=== PATIENT | male | born 1970 | race Caucasian/White ===

== ENCOUNTER 2019-09-09 11:33 | Emergency (ER) | payer OTHER, SELFPAY ==
[2019-09-09 12:40] VITALS: BP 115/70; PULSE 63; RESP 16; TEMP 36.6; O2SAT 98; BMI 23.4
--- NOTE | 2019-09-09 13:00 | ED_ITS ---
Entered by Saturnino Mohan, acting as scribe for Dominguez Grijalva DO Sep 09, 2019 11:33 HPI - Skin/Abscess/Foreign Bdy General: Chief complaint: Skin/Abscess/Foreign Body Stated complaint: ABCESS Time Seen by Provider: 09/09/19 13:00 History of Present Illness: HPI narrative: 49 yo male presents with abcess. pt states that he has had this abcess on his rectal area for about 3 days. Pt states that it is painful. No significant drainage denies fever sweats chills MD complaint: abscess/boil Associated symptoms: Deny chills, fever(s), nausea or vomiting Review of Systems Const: Denies: fever, chills, body aches, fatigue, malaise or night sweats Eyes: Denies: change in vision or blurry vision ENMT: Denies: throat pain, oral sores/lesions, dental pain, nasal discharge or nasal congestion Card: Denies: chest pain, palpitations, irregular heart rhythm, edema, syncope, shortness of breath on exertion, shortness of breath when lying down or leg pain with exertion Resp: Denies: shortness of breath, productive cough, non-productive cough or wheezing GI: Denies: abdominal pain, nausea, vomiting, vomiting blood, coffee grounds in vomit, difficulty swallowing, heartburn/indigestion, diarrhea, constipation, cramping, blood in stool or black tarry stool : Denies: flank pain, difficulty urinating, painful urination, urinary fr equency, urinary urgency, urinary incontinence or blood in urine Musc: Denies: neck pain, back pain, extremity pain, extremity swelling, joint pain or joint swelling Skin/Breast: Reports: redness and new lesion; Denies: rash or itching Neuro: Denies: headache, numbness in extremities, weakness in extremities, changes in sensation, lack of coordination, difficulty walking, frequent falls, dizziness, vertigo or confusion Psych: Denies: anxiety, depression, loss of interest, visual hallucinations, auditory hallucinations, suicidal ideation or homicidal ideation Endo: Denies: excessive urination, excessive thirst, tired all the time or cold intolerance Jeff/Lymph: Denies: easy bruising, easy bleeding, petechiae, enlarged lymph nodes or tender lymph nodes PFSH ED PFSH: Social History Smoking and tobacco status: current every day smoker Physical Exam Const: COMMON NORMALS: average body habitus, oriented x3 and alert GENERAL APPEARANCE: cooperative, comfortable, well kempt and well developed NUTRITIONAL APPEARANCE: obese ORIENTATION/CONSCIOUSNESS: Yes awake, Yes oriented to person and Yes oriented to place HENMT: COMMON NORMALS: normocephalic, head/scalp atraumatic, EAC's normal, TM's normal bilaterally, external nose normal, moist oral mucous membranes and oropharynx normal HEAD & SCALP: normocephalic and atraumatic NOSE: external nose normal EXTERNAL AUDITORY CANAL: EAC's normal TYMPANIC MEMBRANE: TM's normal bilaterally MOUTH: oral and palatal mucosa normal, lip normal and tongue normal THROAT: posterior oropharynx normal and tonsils normal Eye: COMMON NORMALS: PERRL, EOMs intact bilaterally, conjunctivae normal and no scleral icterus CONJUNCTIVA: Yes conjunctivae normal PUPIL: Yes PERRL Neck/C-Spine: COMMON NORMALS: full ROM, no lymphadenopathy, supple, no meningeal signs and thyroid normal THYROID: thyroid normal and asymmetrical Lymph: LYMPHATIC: no lymphadenopathy noted Resp: COMMON NORMALS: normal respiratory effort, no retractions, no use of accessory muscles and clear to auscultation bilaterally AUSCULTATION: clear to auscultation bilaterally Cardio: COMMON NORMALS: regular rate and regular rhythm RATE: regular rate RHYTHM: regular rhythm HEART SOUNDS: no murmurs GI: COMMON NORMALS: normal to inspection, nondistended, normoactive bowel jeremias nds, soft to palpation and no hepatosplenomegaly PALPATION: Yes soft and Yes no hepatosplenomegaly : COMMON NORMALS: Yes no CVA tenderness BLADDER/KIDNEY EXAM: Yes no CVA tenderness Back/Pelvis: COMMON NORMALS: no CVA tenderness LUMBAR SPINE/LOWER BACK: Yes normal to inspection Extremity: COMMON NORMALS: no clubbing, cyanosis or edema, no calf tenderness and no pedal edema Neuro: COMMON NORMALS: oriented x3 SENSORIUM/ORIENTATION: Yes alert, Yes oriented to person and Yes oriented to place MENINGEAL SIGNS: Yes no meningeal signs Psych: APPEARANCE: Yes well kempt Procedures Abscess I/D Site: jaclyn-rectal Side (if applicable): left Local Anesthetic: lidocaine 1% and with epi Amount of anesthesia used (mL): 3 Technique: incised with #11 blade Amount of fluid expressed (mL): 10 Irrigation: Yes Packing used?: iodoform Complications: pain Course ED course: Incision and drainage good relief of discomfort wound cavity are actually relatively small pockets a small amount of quarter inch iodoform gauze. Start him on Augmentin gave him hydrocodone for pain follow-up tomorrow for replacement wound packing and referral to surgery for definitive resection of the perirectal abscess at a later date. Vital Signs: Vital signs: Vital Signs Temperature 98 F 09/09/19 12:40 Pulse Rate 63 09/09/19 13:51 Respiratory Rate 18 09/09/19 13:51 Blood Pressure 115/70 09/09/19 12:40 Pulse Oximetry 96 09/09/19 13:51 MDM - Skin/Abscess/Foreign Bdy Lab Data: Labs: Lab Results 09/09/19 09/09/19 Range/Units 13:16 13:16 WBC 12.4 H (4.0-10.0) 10^3/ uL RBC 4.38 (4.1-5.3) 10^6/u L Hgb 13.6 (11.7-16.6) g/dL Hct 40.8 L (42.0-52.0) % MCV 93.2 (80-94) fL MCH 31.1 (28.0-34.0) pg MCHC 33.3 (30.0-36.0) g/dL RDW 14.2 (12.1-15.1) % Plt Count 263 (130-400) 10^3/c mm MPV 9.2 (7.4-10.4) fL Neut % (Auto) 77.1 % Lymph % (Auto) 15.1 % Taliaferro % (Auto) 6.1 % Eos % (Auto) 1.3 % Baso % (Auto) 0.2 % Neut # (Auto) 9.6 H (1.8-7.7) 10^3/u L Lymph # (Auto) 1.9 (0.8-4.8) 10^3/u L Taliaferro # (Auto) 0.8 (0.2-0.9) 10^3/u L Eos # (Auto) 0.2 (0.0-0.8) 10^3/u L Baso # (Auto) 0.0 (0.0-0.1) 10^3/u L Nucleated RBC % (a uto) 0 % Nucleated RBCs # 0.0 /100WBC Sodium 140 (136-145) mmol/L Potassium 4.1 (3.5-5.1) mmol/L Chloride 104 (98-107) mmol/L Carbon Dioxide 26 (22-29) mmol/L Anion Gap 14.1 (5-19) BUN 7 (6-20) mg/dL Creatinine 0.8 (0.7-1.2) mg/dL GFR Calculation 102.7 (90-130) mL/min Glucose 106 (65-115) mg/dL Calculated Osmolal ity 286 (285-295) mOsm/k g Calcium 9.6 (8.5-10.5) mg/dL Discharge Plan Discharge Patient Disposition: Home, Self-Care Clinical Impression: Jaclyn-rectal abscess Condition: Stable Prescriptions: [place] 5-325 mg tablet 1 tab PO Q6H PRN (Reason: pain) Qty: 25 RF: 0 Augmentin 875-125 mg tablet 1 tab PO Q12H Qty: 20 RF: 0 Discharge Orders: Discharge Order (Routine); Ordered 09/09/19 Ordered By: Dominguez Grijalva Referrals: Srinivasan Grimes MD [Physician] - (Surgical excision of perirectal abscess at later date) Activity Restrictions/Additional Instructions: Follow-up at your doctor's office or 1 of the walk-in clinics for replacement of packing in perirectal abscess tomorrow. Case management will call to arrange for follow-up appointment with surgery. Discharge Date/Time: 09/09/19 14:01 Coding Level of Care Code ED Infectious Diseases Physician for Chg Fwd Exam Comprehensive The documentation recorded by the Marques calvert Kialy, accurately reflects the service I personally performed and the decisions made by Rudi handley Curtis L, DO Sep 09, 2019 11:33
[2019-09-09 13:21] LABS: Basophils % 0.2 %; Eosinophils # 0.2 10^3/uL (0.0-0.8); Eosinophils % 1.3 %; Hematocrit 40.8 % (42.0-52.0); Hemoglobin 13.6 g/dL (11.7-16.6); Lymphocytes # 1.9 10^3/uL (0.8-4.8); Lymphocytes % 15.1 %; Mean Corpuscular HGB Conc 33.3 g/dL (30.0-36.0); Mean Corpuscular Hemoglobin 31.1 pg (28.0-34.0); Mean Corpuscular Volume 93.2 fL (80-94); Mean Platelet Volume 9.2 fL (7.4-10.4); Monocytes # 0.8 10^3/uL (0.2-0.9); Monocytes % 6.1 %; Neutrophils # 9.6 10^3/uL (1.8-7.7); Neutrophils % 77.1 %; Nucleated Red Blood Cells % 0 %; Platelet Count 263 10^3/cmm (130-400); Red Blood Count 4.38 10^6/uL (4.1-5.3); Red Cell Distribution Width 14.2 % (12.1-15.1); White Blood Count 12.4 10^3/uL (4.0-10.0)
[2019-09-09 13:36] LABS: Anion Gap 14.1 (5-19); Blood Urea Nitrogen 7 mg/dL (6-20); Calcium 9.6 mg/dL (8.5-10.5); Carbon Dioxide 26 mmol/L (22-29); Chloride 104 mmol/L (98-107); Glomerular Filtration Rate 102.7 mL/min (90-130); Glucose 106 mg/dL (65-115); Osmolality Calculated 286 mOsm/kg (285-295); Potassium 4.1 mmol/L (3.5-5.1); Sodium 140 mmol/L (136-145)
[2019-09-09] MEDS: ondansetron 2 mg/ML SDV 2 mL 4 MG IM (13:44)
[2019-09-09 13:45] VITALS: RESP 18
[2019-09-09] MEDS: morphine 4 mg/mL SDV 1 mL IM (13:45)
[2019-09-09 13:51] VITALS: PULSE 63; RESP 18; O2SAT 96
--- NOTE | 2019-09-10 11:37 | DCPLANNER ---
Addendum entered by Aura Sanchez 09/14/19 11:34: Patient was seen on 09.14.19 at [facility], and patient did attend the appointment. Original Note: sheet manager had message to schedule a follow up appointment for patient with Dr. Girmes. sheet manager called the office of Dr. Grimes, and gave patients name. sheet manager will call for appointment information. Patient has [facility] insurance, will call October with the VA to let the VA know that patient was seen in the ER.
== END 2019-09-09 14:01 | disposition home or self-care (01) ==
PROVIDERS: Emergency Provider Family Medicine
DX: K61.1 Rectal abscess (principal); F17.200 Nicotine dependence, unspecified, uncomplicated; E66.9 Obesity, unspecified; Z68.23 Body mass index [BMI] 23.0-23.9, adult
CPT/HCPCS: 36415; 46050; 80048; 85025; 87070; 87077; 87205; 96372; 99282; 99283; J2270; J2405

== ENCOUNTER → 2023-07-24 14:15 | Outpatient (BNVA) | payer OTHER, SELFPAY | PROVIDERS: PCP Emergency Medicine Emergency Medical Services; Visit Provider Dermatology | DX: L72.8 Other follicular cysts of the skin and subcutaneous tissue (principal); L57.0 Actinic keratosis; L82.0 Inflamed seborrheic keratosis; L30.0 Nummular dermatitis; L82.1 Other seborrheic keratosis; D22.5 Melanocytic nevi of trunk; Z85.828 Personal history of other malignant neoplasm of skin; Z85.820 Personal history of malignant melanoma of skin | CPT/HCPCS: 17000; 17110; 99204 ==

== ENCOUNTER 2024-04-24 10:13 | Outpatient (CLI) | payer OTHER, SELFPAY ==
[2024-04-24 10:36] VITALS: BMI 24.3
--- NOTE | 2024-04-24 10:36 | ECG_ITS ---
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 Interpretive Statements Exercise sestamibi stress test EXERCISE DATA: The patient was exercised by Ton protocol. Baseline heart rate was 66 beats per minute. Baseline blood pressure was 127/83millimeters of mercury. Maximal predicted heart rate was 166 beats per minute. Maximum heart rate achieved was 151, which was 90% of the maximum predicted heart rate. Maximum blood pressure was 189/73millimeters of mercury. Total exercise time was 5-minute 46 seconds. Maximum METs achieved was 7. The reason for ending the test was maximal effort achieved. The patient complained of shortness of breath during the stress test, which then resolved at the end of the test. ELECTROCARDIOGRAM: BASELINE: Showed sinus rhythm, normal axis, no significant ST-T changes at the baseline noted. [] EXERCISE: At the peak exercise level, [] No significant ST-T changes suggestive of ischemia noted. [] RECOVERY: During the recovery period, heart rate dropped appropriately. No significant ST-T changes in the recovery suggestive of ischemia noted. [] CONCLUSION: 1. Exercise capacity is good 2. Heart rate response was appropriate. 3. Blood pressure response was appropriate. 4. Symptoms not suggestive of ischemia. 5. Electrocardiogram portion of the stress test was not suggestive of ischemia. 6. Nuclear scan will be documented separately. Electronically Signed On 04-24-2024 19:40:35 CDT by Lavon Ngo M.D. [email or web address]
--- NOTE | 2024-04-24 10:41 | NMCV_ITS ---
NM jw perf SPECT r/s* 16000 Jamir Harry Age: 54 Gender: M : 1970 Exam Date: 04/24/2024 10:41 Ordering Phys: Meredith Gonzalez MD Technologist: JESUSITA Torres Exam Location: [facility] Indications: cp STRESS TEST [facility] IMAGE PROTOCOL Rest/Stress 1 Exercise Day Radiopharmaceutical Dose (mCi) Administration Site Administered by Rest: Tc-99m 10.7 IV Luisa Faye, METAL LEAF LAYER Sestamibi Stress:Tc-99m 31.9 IV Luisa Faye, METAL LEAF LAYER Sestamibi Rest: 24-Apr-2024 60 Discovery 630 Stress: 24-Apr-2024 15 Discovery 630 maximum heart rate. Radiopharmaceutical was injected at 87 % maximum heart rate. Images obtained in supine and prone position. SPECT RESULTS Technical Quality: Good Raw Data Analysis: Normal Image Corrections: No attenuation or motion correction applied Summed Stress Score: 0 Summed Rest Score: 0 Summed Difference Score: 0 PERFUSION FINDINGS SPECT images demonstrate homogeneous tracer distribution throughout the myocardium. FUNCTIONAL RESULTS (calculated via Gated SPECT) Stress Image LV EF (%): 79 Stress EDV (mL):105 TID: 1.36 Stress ESV (mL):22 FUNCTIONAL FINDINGS: There is normal left ventricular systolic function. TID ratio is elevated. IMPRESSIONS 1. Normal myocardial perfusion imaging with no evidence of ischemia 2. LV systolic function is normal 3. TID ratio is elevated. Significance of this finding is equivocal in absence of signficant perfusion abnormality. Lavon Ngo MD (Electronically Signed) Final Date: 25 April 2024 13:26 S
[2024-04-24 12:00] VITALS: BP 129/72; PULSE 87
== END 2024-04-24 10:14 | disposition home or self-care (01) ==
PROVIDERS: PCP Family Medicine; Visit Provider Family Medicine
DX: R07.9 Chest pain, unspecified (principal)
CPT/HCPCS: 36415; 78452; 93017; 96374; A9500

== ENCOUNTER → 2024-07-28 07:54 | Outpatient (BNVA) | payer OTHER, SELFPAY | PROVIDERS: PCP Family Medicine; Visit Provider Nurse Practitioner Family | DX: L72.0 Epidermal cyst (principal); L82.1 Other seborrheic keratosis; D22.4 Melanocytic nevi of scalp and neck; Z85.820 Personal history of malignant melanoma of skin; Z08 Encounter for follow-up examination after completed treatment for malignant neoplasm; Z85.828 Personal history of other malignant neoplasm of skin; D48.5 Neoplasm of uncertain behavior of skin; L57.0 Actinic keratosis | CPT/HCPCS: 11102; 17000; 99213 ==

== ENCOUNTER 2025-04-13 09:42 | Outpatient (CLI) | payer OTHER, SELFPAY ==
--- NOTE | 2025-04-13 09:46 | CT_ITS ---
WS: [id number] LDCT LUNG CANCER SCREENING HISTORY: SCREENING TECHNIQUE: Axial imaging performed from the apices to 1 cm below the costophrenic angles. Coronal and sagittal reformats are submitted with axial MIP series. All CT scans at [facility] use at least one of these dose optimization techniques: automated exposure control; mA and/or kV adjustment per patient size (includes targeted exams where dose is matched to clinical indication); or iterative reconstruction. DLP: 49.99 mGy.cm DIvol: Mean CTDIvol: 0.80 (mGy) COMPARISON: None available. Diagnostic quality: Satisfactory Lungs: Pulmonary hyperinflation. There are multiple pulmonary nodules in the RIGHT lower and RIGHT middle lobes. Largest nodule measures 6.8 mm in the RIGHT lower lobe. There are a few additional smaller nodules in the RIGHT middle and RIGHT lower lobes. Thin linear nodule at the RIGHT apex. LEFT perifissural nodule measures 6 mm. There is significant fullness at the RIGHT hilum. Part of this is related to the pulmonary artery. Neoplasm or adenopathy needs to be excluded. The area of fullness measures 2.3 x 2.3 cm. There is mild splaying of the adjacent bronchovascular structures. Heart: Normal size heart with no pericardial effusion.. Other findings: Minimal atherosclerosis aorta. Normal size pulmonary artery. Small hiatal hernia. No adrenal mass. CT/CT lung screening [id number] IMPRESSION: LUNG-RADS: 4B-Suspicious FOLLOW UP: Chest CT with or without contrast OTHER FINDINGS (S MODIFIER): None. Recommend chest CT follow-up with contrast. Fullness at the RIGHT hilum needs t o be further evaluated. Chest CT with IV contrast necessary at this time.
== END 2025-04-13 09:43 | disposition home or self-care (01) ==
LOC: RAD 09:44
PROVIDERS: PCP Family Medicine; Visit Provider Nurse Practitioner Family
DX: Z12.2 Encounter for screening for malignant neoplasm of respiratory organs (principal); Z87.891 Personal history of nicotine dependence; J98.4 Other disorders of lung; R91.8 Other nonspecific abnormal finding of lung field
CPT/HCPCS: 71271

== ENCOUNTER 2025-04-29 13:35 | Outpatient (CLI) | payer OTHER, SELFPAY ==
--- NOTE | 2025-04-29 13:53 | CT_ITS ---
WS: [id number] CT chest w con* [id number] HISTORY: ABNORMAL CT TECHNIQUE: Axial imaging performed through the thorax. Coronal and sagittal reformats are submitted. All CT scans at [facility] use at least one of these dose optimization techniques: automated exposure control; mA and/or kV adjustment per patient size (includes targeted exams where dose is matched to clinical indication); or iterative reconstruction. CONTRAST: Omnipaque 350; 100 mL IV. DLP: 275.22 mGy.cm COMPARISON: Lung screening CT 04/13/2025 Lungs and central airway: Pulmonary hyperexpansion. Cerebral subcentimeter pulmonary nodules are reidentified as described on 04/13/2025. The largest measure approximately 7 mm in the RIGHT middle and RIGHT lower lobes. No obvious change since 04/13/2025. LEFT medial basilar 5 mm pulmonary nodule identified on today's exam. LEFT fissural nodule 3 mm. Pleura: Normal. No pleural effusion. Heart and pericardium: Normal size heart with no pericardial effusion. Mediastinum and jo-ann: RIGHT hilar and RIGHT interlobar lymphadenopathy. Well- circumscribed soft tissue mass at the superior RIGHT hilum measures 2.3 x 2.8 cm. There is an additional well-circumscribed mass measuring 3.0 x 2.4 cm extending along the RIGHT lower lobe pulmonary artery. The RIGHT hilar and RIGHT interlobar masses appear to be contiguous. Additional small but suspicious lymph nodes in the RIGHT paratracheal and at the AP window. Subcarinal 1.2 cm lymph node is cystic in appearance. No LEFT hilar adenopathy. Vessels: Mild atherosclerosis aorta. No aneurysm. Normal size pulmonary artery. Chest wall and lower neck: No soft tissue masses. Upper abdomen: Visualized liver is negative. No adrenal mass. Stomach is distended with food products. Osseous structures: No destructive process. CT/CT chest w con* [id number] IMPRESSION: 1. 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 Smaller but indeterminate lymph nodes bilateral paratrachea l and subcarinal. Recommend follow-up PET/CT imaging at this time. 2. Subcentimeter RIGHT middle and RIGHT lower lobe pulmonary nodules. These co uld be evaluated by PET CT also. Some of these may be too small for PET/CT sens itivity.
[2025-04-29] MEDS: iohexol 350 mg/mL 500 mL Btl (per mL) IV (14:06)
== END 2025-04-29 13:36 | disposition home or self-care (01) ==
LOC: RAD 13:36
PROVIDERS: PCP Family Medicine; Visit Provider Nurse Practitioner Family
DX: R91.8 Other nonspecific abnormal finding of lung field (principal); I70.0 Atherosclerosis of aorta
CPT/HCPCS: 71260

== ENCOUNTER → 2025-05-05 08:41 | Outpatient (BNVA) | payer OTHER, SELFPAY | PROVIDERS: PCP Family Medicine; Visit Provider Surgery | DX: Z12.11 Encounter for screening for malignant neoplasm of colon (principal) | CPT/HCPCS: 99203 ==

== ENCOUNTER → 2025-05-13 08:45 | Outpatient (BNVA) | payer OTHER, SELFPAY | PROVIDERS: PCP Family Medicine; Referring Provider Nurse Practitioner Family; Visit Provider Internal Medicine | DX: R59.1 Generalized enlarged lymph nodes (principal); R91.8 Other nonspecific abnormal finding of lung field; F17.210 Nicotine dependence, cigarettes, uncomplicated | CPT/HCPCS: 99204; Q3014 ==

== ENCOUNTER 2025-05-14 09:39 | Outpatient (CLI) | payer OTHER, SELFPAY ==
--- NOTE | 2025-05-14 09:48 | PETR_ITS ---
PROCEDURE INFORMATION: Exam: PET/CT Skull Base to Mid-thigh Exam date and time: 05/14/2025 10:41 AM Age: 55 years old Clinical indication: Abnormal findings; Right right hilar and interlobar masses likely lymphadenopathy/central bronchogenic carcinoma. ; Additional info: Abnormal CT chest LABS AND CLINICAL REPORTS: Glucose: 81 mg/dl Treatment strategy for malignancy (PET staging): Initial Staging (PI) TECHNIQUE: Imaging protocol: Following at least four-hour fasting and following the injection of radiopharmaceutical, low dose CT images were obtained. Then, PET images were obtained. Attenuation corrected images were constructed using the CT scan. Fused images of PET and CT were reviewed. The standardized uptake values (SUV) reported below are maximum values within a region of interest, expressed in gm/ml. Exam includes orbital meatal line to mid-thigh. SUV normalization method: BodyWeight Radiopharmaceutical: 11 mCi F-18 FDG (Fluorodeoxyglucose), IV. Time of imaging post radiopharmaceutical administration: 46 minutes Injection site: left ac COMPARISON: CT chest w con* [id number] 04/29/2025 2:03 PM FINDINGS: Brain: Visualized brain has normal physiologic uptake. Pharynx: No abnormal uptake. Larynx: No abnormal uptake. Lungs, pleura and trachea: Additional hypermetabolic bilateral pulmonary nodules including reference 1.2 cm right upper lobe nodule (image 149) with SUV max of 28.1, and 4 mm left lower lobe nodule with SUV max of 6.3 (image 154). Heart: Normal physiologic uptake. Mediastinal space: FDG avid right hilar mass with SUV max of 49.5. Liver: No abnormal uptake. Gallbladder and biliary ducts: No abnormal uptake. Pancreas: No abnormal uptake. Spleen: No abnormal uptake. Adrenal glands: No abnormal uptake. Kidneys and ureters: Normal physiologic uptake. Stomach and bowel: No abnormal uptake. Vasculature: No abnormal uptake. Lymph nodes: Hypermetabolic mediastinal and bilateral hilar lymph nodes including 1.1 cm high right paratracheal lymph node with SUV max of 14.5 (series 202, image 120), 1.1 cm left hilar lymph node with SUV max of 5.1 (image 141), 1.3 cm subcarinal lymph node (image 144) with SUV max of 50.9. Mildly FDG avid tiny right axillary lymph node measuring 4 mm. Skeleton: No abnormal uptake in the visualized axial and appendicular skeleton. Soft tissues: FDG avid subcutaneous nodule in the left medial back measuring 4 mm (image 158) with SUV max of 6.5. METRICS: Mediastinal blood pool: SUV max = 2.4 Liver uptake: SUV max = 3.0 PET/PET skull to thigh INIT [id number] IMPRESSION: 1. Hypermetabolic right hilar mass compatible with primary malignancy. 2. Hypermetabolic mediastinal and bilateral hilar lymph nodes concerning for metastatic disease. 3. Hypermetabolic metastatic bilateral pulmonary nodules. 4. FDG avid subcutaneous nodule in the left medial back measuring 4 mm. This may be infectious or inflammatory in etiology or may reflect metastatic disease.
== END 2025-05-14 09:40 | disposition home or self-care (01) ==
PROVIDERS: PCP Family Medicine; Visit Provider Nurse Practitioner Family
DX: R91.8 Other nonspecific abnormal finding of lung field (principal); R59.0 Localized enlarged lymph nodes; R93.89 Abnormal findings on diagnostic imaging of other specified body structures
CPT/HCPCS: 78815; A9552

== ENCOUNTER 2025-05-18 16:39 | Outpatient (CLI) | payer OTHER, SELFPAY ==
--- NOTE | 2025-05-18 17:00 | CTR_ITS ---
PROCEDURE INFORMATION: Exam: CT Chest Without Contrast; Diagnostic Exam date and time: 05/18/2025 5:16 PM Age: 55 years old Clinical indication: Other: Mediastinal lymphadenopathy; Additional info: Mediastinal lymphadenopathy r59.0 TECHNIQUE: Imaging protocol: Diagnostic computed tomography of the chest without contrast. Radiation optimization: All CT scans at this facility use at least one of these dose optimization techniques: automated exposure control; mA and/or kV adjustment per patient size (includes targeted exams where dose is matched to clinical indication); or iterative reconstruction. COMPARISON: PT PET skull to thigh INIT [id number] 05/14/2025 10:41 AM RADIATION DOSE METRICS: Total DLP (mGy-cm): 189.15 FINDINGS: Trachea: Small secretions/debris in the trachea. Lungs: Emphysematous changes. Focus of subsegmental atelectasis in the right middle lobe is unchanged. 9 mm right middle lobe nodule is unchanged. Nodules in the right lower lobe measuring up to 1.5 cm, unchanged. Scattered smaller nodules throughout the right lung are not significantly changed. 5 mm left lower lobe nodule is not significantly changed. Pleural spaces: No pleural effusion. No pneumothorax. Heart: Heart size normal. No pericardial effusion. Coronary arteries: No coronary artery calcifications. Lymph nodes: Subcarinal lymph node measuring 3.4 x 1.2 cm, not significantly changed (series 3, image 277). Right hilar lymph node/mass measures 3.3 x 2.9 cm (series 3, image 325), difficult to measure without contrast, but apparently slightly increased in size since prior exam. Small superior mediastinal lymph nodes are unchanged. Vasculature: Intimal calcifications of the aorta and it proximal branch vessels. Bones/joints: No acute fracture or dislocation. Mild degenerative changes. Soft tissues: Unremarkable. CT/CT chest ION (PULM ONLY) [id number] IMPRESSION: 1. Right hilar lymph nodes/mass, difficult to accurately measure without intravenous contrast but apparently slightly increased in size since prior exam. 2. Stable bilateral lung nodules. COMMENTS: The presence of pulmonary emphysema on CT is an independent risk factor for lung cancer. In the absence of a history or active diagnosis of lung cancer, it is recommended that this patient with emphysema be evaluated for enrollment in a low dose CT lung cancer screening program.
== END 2025-05-18 16:40 | disposition home or self-care (01) ==
LOC: RAD 16:40
PROVIDERS: PCP Family Medicine; Visit Provider Internal Medicine
DX: R59.0 Localized enlarged lymph nodes (principal); J43.9 Emphysema, unspecified; J98.11 Atelectasis; R91.8 Other nonspecific abnormal finding of lung field; M47.9 Spondylosis, unspecified
CPT/HCPCS: 71250

== ENCOUNTER 2025-05-19 06:45 | Day surgery (SDC) | payer OTHER, SELFPAY ==
[2025-05-19] VITALS (10 sets, daily range): BP systolic 100–120; BP diastolic 63–74; PULSE 58–72; RESP 16–17; TEMP 36.1–36.9; O2SAT 94–99; BMI 22.8
[2025-05-19 07:27] LABS: Hematocrit 42.1 % (37-53); Hemoglobin 14.70 g/dL (11.27-16.99); Mean Corpuscular HGB Conc 34.9 g/dL (30-55); Mean Corpuscular Hemoglobin 32.7 pg (27-33); Mean Corpuscular Volume 93.8 fl (82-101); Nucleated Red Blood Cells % 0 %; Platelet Count 253 10^3/cmm (157-399); Red Blood Count 4.49 10^6/uL (3.85-5.65); White Blood Count 9.88 10^3/uL (3.29-11.43)
[2025-05-19 07:40] LABS: INR 0.89 (0.8-1.2); Prothrombin Time 12.60 SECONDS (12.1-14.9)
--- NOTE | 2025-05-19 07:45 | ANES.PREANE2 ---
Pre-Anesthetic Assessment Height/Weight: Height 5 ft 8 in Weight 150 lb Temp Pulse Resp BP Pulse Ox O2 Del Method 98.4 F 67 17 120/73 98 Room Air 05/19/25 07:31 05/19/25 07:31 05/19/25 07:31 05/19/25 07:31 05/19/25 07:31 05/19/25 07:31 Preop Diagnosis: Pulmonary nodules Operation Date: 05/19/25 08:30 Proposed Procedures p Bronchoscopy with Lavage [id number] R59.0(Not Applicable) - Marissa Stevenson MD s Ion Robotic Assisted Bronchoscopy(Not Applicable) - Marissa Stevenson MD s Ebus(Not Applicable) - Marissa Stevenson MD Was Beta Harpreet taken within 24 hours: N/A Was Clonidine taken within 24 hours: N/A Last intake: Intake Last Liquid Date 05/18/25 Last Liquid Time 22:00 Last Solid Date 05/18/25 Last Solid Time 16:30 Social Tobacco and No alcohol Exam alert, oriented x 3 and regular rate & rhythm Decreased breath sounds bilaterally Airway Submandibular: within normal limits Cervical ROM: within normal limits Mallampati: Class III Comments: Comments: Very questionable dentition, denies any loose teeth Anesthetic Plan ASA status: 3 Anesthesia: General Other: No prior issues with anesthesia NPO since yesterday evening History of GERD on omeprazole Denies any cardiac history Patient has mediastinal lymphadenopathy and multiple small lung nodules Current smoker Labs 05/19/2025 reviewed and acceptable for procedure Plan for GETA Medications/Allergies Home Medications ?Medication ?Instructions ?Recorded ?Confirmed ?Last Taken ?Type aspirin 81 mg tablet 81 mg PO DAILY 05/05/25 05/17/25 05/15/25 History omeprazole 20 mg tablet,delayed 20 mg PO DAILY 05/05/25 05/17/25 05/19/25 History release trazodone 50 mg tablet 50 mg PO DAILY 05/05/25 05/17/25 05/17/25 History varenicline tartrate 0.5 mg (11)-1 See Rx Instructions PO PER PKG DIR 05/13/25 05/18/25 Unknown Rx mg (42) tablets in a dose pack #53 ea ([employer] Starting Month Box) Allergies Allergy/AdvReac Type Severity Reaction Status Date / Time No Known Allergies Allergy Verified 05/17/25 08:21 Current Medications Generic Name Dose Route Start Last Admin Trade Name Freq PRN Reason Stop Dose Admin Sodium Chloride 1,000 mls @ 30 mls/hr 05/19/25 07:00 05/19/25 07:19 Sodium Chloride 0.9% IV 05/20/25 06:59 30 mls/hr .Q24H LIZBETH Administration PFSH Anesthesia Medical History (Updated 05/13/25 @ 10:44 by Marissa Stevenson MD) Mediastinal lymphadenopathy Surgical History History of melanoma excision History of appendectomy History of local excision of skin lesion History of colonoscopy (~2012) Family History Denies family history of Anesthesia complication Bleeding disorder Social History Smoking and tobacco/nicotine status: current every day tobacco/nicotine user (1 ppd X 37 years) Data Anesthesia 05/19/25 07:20 Short CBC 05/19/25 Range/Units 07:20 WBC 9.88 (3.29-11.43) 10^3/uL Hgb 14.70 (11.27-16.99) g/dL Hct 42.1 (37-53) % MCV 93.8 (82-101) fl Plt Count 253 (157-399) 10^3/cmm Neut % (Auto) 70.8 % Neut # (Auto) 6.99 (1.8-7.7) 10^3/uL Coags 05/19/25 07:20 PT 12.60 INR 0.89 Cardiac Studies: Sestamibi Stress Test (Cardiology) 04/24/24
--- NOTE | 2025-05-19 08:17 | SC_ITS ---
WS: [id number] C-arm fluoroscopy for bronchoscopy biopsy, 05/19/2025 Clinical Data: ION Comparison: CT chest, 04/29/2025 Findings: Dr. Stevenson biopsied the right midlung lesion. SC/C-arm FL for Bronchoscopy Impression: Bronchoscopic biopsy of right mid lung lesion.
--- NOTE | 2025-05-19 08:38 | PM.HP ---
Providers/Chief Complaint Primary Care Provider: Meredith Gonzalez MD Chief Complaint: R59.0 History of Present Illness Jamir Harry is a 55 year old male Surgery/Procedure H&P Update DATE OF PROCEDURE:05/19/2025 DATE H&P PERFORMED: 05/13/2025 CHANGES TO PREVIOUS DOCUMENTATION: Patient was seen and examined. No significant changes since I saw in the clinic. We will proceed with bronchoscopy as we planned. PREOP DIAGNOSIS: Lung nodule right upper lobe PRIMARY INDICATION FOR PROCEDURE: Lung nodule right upper lobe rule out malignancy and EBUS bronchoscopy PLANNED PROCEDURE: Operation Date: 05/19/2025 9 AM Proposed Procedures Ion Robotic Assisted Bronchoscopy for lung nodule with EBUS POSSIBLE Biopsy 27074, 71429, 47642, 87016, 36331, 198.4 - Marissa Stevenson MD Proposed Procedures p Bronchoscopy [id number] 56794 71455 60010 47059 14207 [id number] R91. - Marissa Stevenson MD s Ion Robotic Assisted Bronchoscopy - Marissa Stevenson MD s Ebus - Marissa Stevenson MD Medications/Allergies Home Medications ?Medication ?Instructions ?Recorded ?Confirmed ?Last Taken ?Type aspirin 81 mg tablet 81 mg PO DAILY 05/05/25 05/17/25 05/15/25 History omeprazole 20 mg tablet,delayed 20 mg PO DAILY 05/05/25 05/17/25 05/19/25 History release trazodone 50 mg tablet 50 mg PO DAILY 05/05/25 05/17/25 05/17/25 History varenicline tartrate 0.5 mg (11)-1 See Rx Instructions PO PER PKG DIR 05/13/25 05/18/25 Unknown Rx mg (42) tablets in a dose pack #53 ea (Chantix Starting Month Box) Allergies Allergy/AdvReac Type Severity Reaction Status Date / Time No Known Allergies Allergy Verified 05/17/25 08:21 PFSH Acute PFSH: Medical History (Updated 05/13/25 @ 10:44 by Marissa Stevenson MD) Mediastinal lymphadenopathy Surgical History History of melanoma excision History of appendectomy History of local excision of skin lesion History of colonoscopy (~2012) Family History Denies family history of Anesthesia complication Bleeding disorder Social History Smoking and tobacco/nicotine status: current every day tobacco/nicotine user (1 ppd X 37 years) Vitals/I&O/Wt Last Vital Signs Temp 98.4 F 05/19/25 07:31 Pulse 67 05/19/25 07:31 Resp 17 05/19/25 07:31 BP 120/73 05/19/25 07:31 Pulse Ox 98 05/19/25 07:31 O2 Del Method Room Air 05/19/25 07:31 Weight last 48 hrs Weight 150 lb Data 05/19/25 07:20 A&P PDMP PDMP Reviewed: Not Reviewed Attestations Medical Necessity Statement*: Bronchoscopy Coding Level of Care Code Acute Code for Christy Barahona
[2025-05-19] MEDS: EPINEPHrine 1 MG in sodium chloride 0.9% (100 ml) 19 ML XX (10:45)
--- NOTE | 2025-05-19 10:49 | W.PM.BPONFUL ---
Procedure: Robotic bronchoscopy with complete mediastinal staging Attending: Marissa Stevenson MD Indication: Right hilar mass and left upper lobe nodule Anesthesia: General anesthesia per anesthesia team Procedure: Pre-Anesthesia Assessment Mobile Protocol: Pre-procedure Verification: Prior to the procedure, the patient's identity was confirmed using full name, date of , and medical record number. Identity verification included a review of all relevant medical records, history, physical examination, medications, allergies, and previous anesthesia tolerance. Risks, benefits, sedation options, and associated risks were reviewed with the patient, and informed consent was obtained after addressing all questions. Time-Out: Immediately before the procedure, a time-out was conducted to confirm patient identification, procedure details, consent, image labeling, and the need for prophylactic antibiotics. This was verified by the physician, nurse, anesthesiologist, and wheat cleaner. Outcome: The procedure was completed without difficulty, and the patient tolerated it well. Findings: A thorough airway exam was performed after passage of the bronchoscope. The trachea was anatomically normal. The right sided airway was anatomically normal without endobronchial lesions. No secretions. The left sided airway was anatomically normal without endobronchial lesions. No secretions. The prior bronchoscope was removed from the airway. The [employer] Robotic Bronchoscopy platform was moved into place. The robotic bronchoscope was inserted into the endotracheal tube with care. The position of the bronchoscope was registered to a pre-existing CT scan using shape-sensing virtual bronchoscopy technology (96993). We navigated towards the lesion in the right upper lobe nodule using a pre-planned route using virtual bronchoscopy Prior to sampling, confirmation of lesion location was done using: - Radial ultrasound probe with a concentric view (21684), - Fluroscopy with a tool overlying the lesion on at least one visual plane. - Virtual target located directly within the path of intended biopsy direction on EMN, After confirming our location, we proceeded to sampling. Transbronchial needle aspiraiton (TBNA) was performed of the lesion using the ION TBNA 21-gauge needle. A total of 5 passes were formed. (31835) Transbronchial biopsies of the lesion were performed using the captura 1.8 mm forceps). A total of 10 samples were obtained. (69398) A bronchoalveolar lavage was performed of the lobe containing the target lesion with 120mL of saline instilled and 40 mL of effluent returned. Additional rinse from the robotic bronchoscope lumen was added to the sample after removal of the scope. (52802) The prior bronchoscope was removed from the airway and the EBUS scope was inserted. A complete curvilinear EBUS procedure was performed of the following lymph nodes: Level 11R station was identified with the EBUS scope at the medial LMSB/RMSB and 8 passes were made using a 21G Olympus TBNA needle. Level 4R station was identified, enlarged but encased with blood vessels so EBUS biopsy could not be performed safely. Level 7 station was identified with the EBUS scope at the medial LMSB/RMSB and 4 passes were made using a 21G Olympus TBNA needle. Level 4L station was identified. No nodes met size criteria for biopsy. Level 11L station was identified. No nodes met size criteria for biopsy. [place] Bleeding Scale Grade 1: Suctioning <1 minute. Bleeding of no clinical consequence to patient or provider. Following completion of all diagnostic and therapeutic procedures, hemostasis was verified. The scope was removed and procedure concluded. In summary, the following procedures were performed: 16832 BAL, (Bronchoalveolar Lavage), 28784 TBBX, (Transbronchial biopsies, first lobe), 32637 pTBNA, (peripheral transbronchial needle aspiration), 87952 cEBUS 1-2 lesions, (Central curvelinear EBUS 1-2 lesions), 61587 pEBUS (peripheral/radial EBUS) , 07223 Erik, ([facility] bronchoscopy, [facility], [employer]), Marissa Stevenson MD Pulmonary and Critical Care
--- NOTE | 2025-05-19 11:01 | XR_ITS ---
WS: [id number] Portable AP upright chest, 05/19/2025 Clinical Data: post bronch/ion/ebus Comparison: CT chest, 04/29/2025 Findings: No nodules or effusions are seen. There is enlargement of the right hilum which corresponds with a right hilar mass seen on CT chest. The heart is normal. The pulmonary vascularity is not increased. No pneumonia or pneumothorax is seen. The diaphragms are flattened. There are monitor leads on the chest wall. XR/XR chest 1V portable [id number] Impression: 1. Right hilar enlargement corresponding to the mass seen on CT chest. 2. Hyperinflation.
[2025-05-19 11:21] LABS: Cyto Order Verification Order Verified
[2025-05-19 11:22] LABS: Apprearance, Bronch Wash Bloody (CLEAR); Bronch Source RIGHT UPPER LOBE; Color, Bronc Wash Red; PATH Referral Yes
--- NOTE | 2025-05-19 12:00 | PC.NURSE ---
Dr Stevenson notified of CXR results being clear, patient being prepped for D/C
--- NOTE | 2025-05-19 12:20 | ANE.PACU2 ---
Inpatient post-anesthesia follow up: Airway intact: Yes Vital signs: Temperature 97.7 F Pulse Rate 62 Respiratory Rate 17 Blood Pressure 118/72 Pulse Oximetry 96 Oxygen Delivery Me thod Room Air Oxygen Flow Rate Fraction of Inspir ed Oxygen Hydration adequate: Yes Nausea and vomiting: No Pain level: 1 Mental status: Baseline
[2025-05-19 13:53] LABS: Neutrophils % Bronch 61.00 % (0.9-2.3); Total Cells Counted Bronch 200
[2025-05-19 13:54] LABS: Lymphocytes % Bronch 27.00 % (10.71-12.91); Macrophages % Bronch 112.00 % (83.6-86.8)
[2025-05-21 19:40] LABS: Aspergillus AG,EIA DETECTED; Aspergillus AG,EIA, Index 1.08
[2025-05-24 16:25] LABS: P. Jirovecii DNA QL PCR Not Detected (Not Detected); P. Jirovecii DNA QL PCR Source Results Below
[2025-05-25 16:58] LABS: Blastomyces Antigen Interpret NEGATIVE; Blastomyces Antigen Result None Detected
[2025-05-25 19:24] LABS: Histoplasma Antigen (Quant) None Detected; Histoplasma Antigen Interpreta NEGATIVE; Histoplasma Antigen Specimen LAVAGE,BRONCHIAL
== END 2025-05-19 12:20 | disposition home or self-care (01) ==
PROVIDERS: PCP Family Medicine; Visit Provider Internal Medicine
PROC: (CPT 31624; principal; 2025-05-19 08:30)
PROC: 0BJ08ZZ Inspection of Tracheobronchial Tree, Via Natural or Artificial Opening Endoscopic (ICD-10-PCS; CPT 31622; 2025-05-19 08:30)
PROC: BB4BZZZ Ultrasonography of Pleura (ICD-10-PCS; 2025-05-19 08:30)
DX: R91.8 Other nonspecific abnormal finding of lung field (principal); R91.1 Solitary pulmonary nodule; R59.1 Generalized enlarged lymph nodes; Z79.82 Long term (current) use of aspirin; K21.9 Gastro-esophageal reflux disease without esophagitis; F17.210 Nicotine dependence, cigarettes, uncomplicated
CPT/HCPCS: 31624; 31628; 31629; 31652; 31654; 71045; 76000; 80503; 85025; 85610; 87015; 87070; 87102; 87116; 87205; 87206; 87305; 87385; 87449; 87798; 87801; 88112; 88305; 89050; A9270; J0169; J1100; J2405; J2704; J3010; J3490; J7030; J9999

== ENCOUNTER → 2025-06-21 10:52 | Outpatient (BNVA) | payer OTHER, SELFPAY | PROVIDERS: PCP Family Medicine; Visit Provider Internal Medicine | DX: R59.0 Localized enlarged lymph nodes (principal); R93.89 Abnormal findings on diagnostic imaging of other specified body structures; R06.02 Shortness of breath; F17.210 Nicotine dependence, cigarettes, uncomplicated; J44.9 Chronic obstructive pulmonary disease, unspecified | CPT/HCPCS: 99214; Q3014 ==